=== PATIENT | male | born 1965 | race Caucasian/White ===

== ENCOUNTER 2022-11-05 09:41 | Emergency (ER) | payer BC ==
[2022-11-05 10:03] VITALS: BP 156/107; PULSE 76; RESP 20; TEMP 99.5; BMI 21.7
[2022-11-05] MEDS ORDERED: PANTOPRAZOLE SODIUM 40 MG VIAL IVPUSH ONE (10:43)
[2022-11-05] MEDS ORDERED: ONDANSETRON 4 MG/2 ML VIAL IVPUSH ONE (10:43)
[2022-11-05] MEDS ORDERED: PANTOPRAZOLE SODIUM 40 MG VIAL ONE (10:44)
[2022-11-05] MEDS ORDERED: ONDANSETRON 4 MG/2 ML VIAL ONE (10:44)
[2022-11-05 10:55] LABS: HEMATOCRIT 44.8 % (35.4-49); HEMOGLOBIN 15.2 G/dL (11.7-16.9); MCH 31.8 pg (25.7-33.7); MEAN CELL VOLUME 93.6 fl (80-96); MEAN PLT VOLUME 7.3 fl (7.5-11.1); PLATELET COUNT 275.7 10^3/uL (134-434); RBC 4.79 10^6/uL (4.00-5.60); RDW 14.2 % (11.9-15.9); WHITE BLOOD COUNT 9.1 10^3/uL (4.0-10.8)
[2022-11-05 11:01] LABS: INR 1.09 (0.83-1.09); PROTHROMBIN TIME (PATIENT) 12.6 SEC (9.7-13.0)
[2022-11-05 11:03] LABS: ACTIVATED PTT 31.2 SECONDS (25.2-36.5)
[2022-11-05 11:18] LABS: ALBUMIN 3.4 g/dl (3.4-5.0); CALCIUM 8.5 mg/dl (8.5-10.1); CREATININE 0.6 mg/dl (0.6-1.3); POTASSIUM 3.5 mmol/L (3.5-5.1); TOT PROT 6.4 g/dl (6.4-8.2)
[2022-11-05 11:32] LABS: PLATELET ESTIMATE ADEQUATE
[2022-11-05 12:54] LABS: BILIRUBIN,TOTAL 0.7 mg/dL (0.2-1)
== END 2022-11-05 13:47 | disposition home or self-care (01) ==
LOC: FER 09:41
PROC: 3E033GC Introduction of Other Therapeutic Substance into Peripheral Vein, Percutaneous Approach (ICD-10-PCS; principal; 2022-11-05)
PROC: 3E033GC Introduction of Other Therapeutic Substance into Peripheral Vein, Percutaneous Approach (ICD-10-PCS; 2022-11-05)
DX: R07.89 Other chest pain (principal); R10.11 Right upper quadrant pain; K22.2 Esophageal obstruction; R11.10 Vomiting, unspecified; R07.9 Chest pain, unspecified
CPT/HCPCS: 36415; 71046-TC-FY; 71260-TC; 74177-TC; 76705-TC; 80053; 83605; 83690; 84484; 85027; 85610; 85730; 86850; 86900; 86901; 93005; 99285-25; Q9967